=== PATIENT | female | born 1965 | race Caucasian/White ===

== ENCOUNTER → 2017-02-12 | Outpatient (CLI) | payer BC ==
[~2017-02-12] MED LIST: CALC1CAP24 PO; CHLO4TAB20 PO; IBUP-103 PO; NAPR1TAB9 PO; OXYC-57 PO
== END | disposition home or self-care (01) ==
LOC: C.PAPS 11:26
PROVIDERS: ATTEND Obstetrics & Gynecology
DX: Z01.419 Encounter for gynecological examination (general) (routine) without abnormal findings (principal)

== ENCOUNTER 2017-05-20 06:56 | Day surgery (SDC) | payer BC ==
[2017-04-15 09:15] VITALS: BMI 28.0
[~2017-05-20] VITALS: Ht 149.9 cm; Wt 63.0 kg
[2017-05-20] VITALS (8 sets, daily range): BP systolic 83–132; BP diastolic 49–74; PULSE 66–83; TEMP 36.8–37; O2SAT 96–100; Ht 149.9 cm; Wt 63.0 kg
[~2017-05-20 06:56] MED LIST changes: -NAPR1TAB9 PO; -OXYC-57 PO
[2017-05-20] MEDS ORDERED: PROPOFOL IV EMULSION 10 MG/ML 20 ML VIAL IV ONE (07:00)
[2017-05-20] MEDS ORDERED: ROCURONIUM BROMIDE 10 MG/ML 5 ML VIAL IV ONE (07:00)
[2017-05-20] MEDS ORDERED: LIDOCAINE HCL 2% 2 ML VIAL (20MG/ML) ONE (07:00)
[2017-05-20] MEDS ORDERED: MIDAZOLAM HCL 1 MG/ML 2ML VIAL ONE (07:00)
[2017-05-20] MEDS ORDERED: FENTANYL CITRATE INJ 50 MCG/1 ML 2 ML VIAL ONE ×2 (07:00→09:21)
[2017-05-20] MEDS: LACTATED RINGER'S 1000ML 1,000 ML IV SCH ×4 (07:24→07:29)
[2017-05-20] MEDS ORDERED: ATROPINE SULFATE 0.1 MG/ML 5ML SYR IV PRN (07:30)
[2017-05-20] MEDS ORDERED: HYDROmorphone INJ 1 MG/ML SYR IV PRN (07:30)
[2017-05-20] MEDS ORDERED: EpHEDrine SULFATE INJ 50 MG/ML AMP IV PRN (07:30)
[2017-05-20] MEDS ORDERED: FENTANYL CITRATE INJ 50 MCG/1 ML 2 ML VIAL IV PRN (07:30)
[2017-05-20] MEDS ORDERED: ONDANSETRON INJ 2 MG/ML 2 ML VIAL IV PRN (07:30)
[2017-05-20] MEDS ORDERED: NAPR1TAB9 PO (07:36)
[2017-05-20 07:56] LABS: BASO % 0.3 %; BASO ABS # 0.02 K/uL (0-0.2); EOS % 1.1 %; HEMATOCRIT 37.4 % (37-47); IG% 0.2 %; LYMPH % 29.9 %; LYMPH ABS # 1.91 K/uL (1.2-3.4); MEAN CORPUSCULAR HEMOGLOBIN 30.4 pg (25-34); MEAN PLATELET VOLUME 9.7 fL (7.4-10.4); NEUT % 62.5 %; PLATELET COUNT 288 K/uL (130-400); RED BLOOD COUNT 3.98 M/uL (4.2-5.4); WHITE BLOOD COUNT 6.38 K/uL (4.8-10.8)
[2017-05-20 08:01] LABS: COMPLETE YES; MEAN CORPUSCULAR HGB CONC 32.4 g/dl (32-36)
[2017-05-20] MEDS ORDERED: BUPIVACAINE 0.5 % 5 MG/1 ML MPF 30ML VIAL ONE (08:17)
--- NOTE | 2017-05-20 08:25 | History & Physical Bridge Note ---
H&P Re-Evaluation Bridge Note: I have examined the patient, reviewed the History & Physical and in the interval since the performance of the History & Physical I have noted the following changes of clinical significance: No changes noted
[2017-05-20] MEDS ORDERED: ONDANSETRON INJ 2 MG/ML 2 ML VIAL ONE (09:14)
[2017-05-20] MEDS ORDERED: DEXAMETHASONE SOD INJ 4 MG/ML VIAL ONE (09:14)
[2017-05-20] MEDS ORDERED: GLYCOPYRROLATE INJ 0.2 MG/ML VIAL ONE (09:28)
[2017-05-20] MEDS ORDERED: NEOSTIGMINE METHYLSULFATE 5 MG/5 ML SYR ONE (09:28)
[2017-05-20] MEDS ORDERED: SILVER NITR/POTASSIUM NITRATE 10 APPLICATOR PACK ONE (10:03)
[2017-05-20] MEDS ORDERED: LACTATED RINGER'S 1000ML 1,000 ML IV SCH (10:13)
[2017-05-20] MEDS ORDERED: OXYCODONE/ACETAMINOPHEN 5-325 TAB PO PRN ×2 (10:15)
[2017-05-20] MEDS ORDERED: ACETAMINOPHEN 650 MG SUPP PR PRN (10:15)
[2017-05-20] MEDS ORDERED: IBUPROFEN 600 MG TAB PO PRN (10:15)
[2017-05-20] MEDS ORDERED: IBUPROFEN 200 MG TAB PO PRN (10:15)
[2017-05-20] MEDS ORDERED: OXYC-57 PO (10:15)
[2017-05-20] MEDS ORDERED: MoRPHine SULFATE 2 MG/ML CARP IV PRN ×2 (10:15)
[2017-05-20] MEDS ORDERED: ACETAMINOPHEN 325 MG TAB PO PRN (10:15)
[2017-05-20] MEDS ORDERED: KETOROLAC TROMETHAMINE 30 MG/ML VIAL IV. PRN ×2 (10:15)
[2017-05-20] MEDS ORDERED: MoRPHine SULFATE 4 MG/ML 1 ML CARP\\VIAL IV PRN (10:15)
--- NOTE | 2017-05-20 10:16 | Discharge Instructions ---
Discharge Instructions Date of Service May 20, 2017. Visit Reason for Visit: Complex Left Ovarian Cyst Discharge Discharge Diagnosis / Problem: s/p laproscopic removal of left tube and ovary. Discharge Goals Goal(s): Specific goals Activity Recommendations Activity Limitations: per Instructions/Follow-up section Anesthesia . Post Anesthesia Instructions: If you have had General Anesthesia or IV Sedation: * Do not drive today. * Resume driving when surgeon permits. * Do not make important decisions or sign legal documents today. * Call surgeon for: 1. Temperature elevations greater than 101 degrees F. 2. Uncontrollable pain. 3. Excessive bleeding. 4. Persistent nausea and vomiting. 5. Medication intolerance (nausea, vomiting or rash). * For nausea and vomiting use only clear liquids such as: tea, soda, bouillon until nausea subsides, then gradually increase diet as tolerated. * If you have any concerns or questions, call your surgeon's office. If physician is unavailable and it is an emergency, call 911 or go to the nearest emergency room. . Instructions / Follow-Up Instructions / Follow-Up ACTIVITY RECOMMENDATIONS: * Rest the first 2-3 days. You should be back to your normal activity levels by day 3. * No heavy lifting for 2 weeks. * No intercourse, tampons or douching for 1-2 weeks. * You may shower the next day. * Do not drive anytime that you are taking narcotic pain medicines. RETURN TO SCHOOL/WORK: * May return to school or work after 2-3 days. DIET: Nausea may occur in the immediate post-operative period. If so, take clear liquids such as tea, bouillon, apple juice until all nausea has subsided, then resume usual diet. MEDICATIONS: Resume previous medications unless instructed otherwise by your surgeon. Ibuprofen 200mg 2-3 tablets every 4-6 hours as needed -- OR -- Aleve 2 tablets every 8-12 hours as needed for post-operative discomfort Medications are over the counter. Tylenol may be used if above medications are contraindicated or not preferred. Medication should be taken with food or milk. Do not take on an empty stomach. SPECIAL CARE INSTRUCTIONS: * Check temperature twice daily for one week. report any elevation over 101 degrees. * You may experience some vagina spotting and/or bleeding. This is normal for 1 -2 weeks and should not be heavier than a normal period. If it is unusual in amount, call your physician. * Post-operative discomfort may consist of a sore throat, a "bloated" feeling and pain in the shoulders. these are normal symptoms, which usually only last for 2-3 days. * Remove band-aids tomorrow and shower. There is no need to replace band-aids unless there is drainage or discomfort. FOLLOW UP VISIT: Call your doctor's office for a post-operative 2 week visit if not already scheduled. Diet Recommendations Recommended Home Diet: no limitations, resume previous diet Procedures Procedures Performed: Left Laparoscopic Salpingo-Oopherectomy Robot Assist Pending Studies Studies pending at discharge: no Medical Emergencies . Who to Call and When: Medical Emergencies: If at any time you feel your situation is an emergency, please call 911 immediately. . Non-Emergent Contact Non-Emergency issues call your: Artillery Or [employer] Gunfire Observer . . "Provider Documentation" section prepared by MaryK ay Fitzgerald. . [place] Drug Monitoring Program Search Results: patient reviewed within database, no issues identified
--- NOTE | 2017-05-20 10:18 | [facility] Post Operative Brief Note ---
Immediate Operative Summary Operative Date May 20, 2017. Pre-Operative Diagnosis Complex ovarian cyst Post-Operative Diagnosis Same as preop Procedure(s) Performed Left Laparoscopic Salpingo-Oopherectomy Robot Assist Surgeon Dr. Fitzgerald Creative Specialist Surgeon(s) Dr. Beckford Estimated Blood Loss 0 ml Findings slightly enlarged left ovary. nl tubes, nl appearing right ovary. adhesions of the bladder to the anterior abdominal wall. a couple of small omental adhesions. Fluids (cc crystalloids) 700cc Specimens A. Left fallopian tube and ovary Drains none Anesthesia gett Complication(s) None Disposition Recovery Room / PACU
--- NOTE | 2017-05-20 11:08 | Anesthesiology Progress Note ---
Anesthesia Post Op Note Date & Time May 20, 2017 at 11:08 Vital Signs Pain Intensity: 3 Vital Signs Past 12 Hours Date Time Temp Pulse Resp B/P (MAP) Pulse Ox O2 Delivery O2 Flow Rate FiO2 05/20/17 10:50 36.0 75 12 120/74 97 Room Air 05/20/17 10:40 72 14 128/70 98 Room Air 05/20/17 10:30 74 19 120/74 100 Oxymask 10 05/20/17 10:20 82 15 119/69 100 Oxymask 10 05/20/17 10:14 36.2 95 16 131/77 100 Oxymask 10 05/20/17 07:20 37 83 18 132/74 (93) 99 Room Air Notes Mental Status: alert / awake / arousable, participated in evaluation Pt Amnestic to Procedure: Yes Nausea / Vomiting: adequately controlled Pain: adequately controlled Airway Patency, RR, SpO2: stable & adequate BP & HR: stable & adequate Hydration State: stable & adequate Anesthetic Complications: no major complications apparent
--- NOTE | 2017-05-20 13:01 | OPERATIVE REPORT ---
DATE OF OPERATION: 05/20/2017 PREOPERATIVE DIAGNOSIS: Complex left ovarian cyst. POSTOPERATIVE DIAGNOSIS: Same. PROCEDURE: Laparoscopic left salpingo-oophorectomy. SURGEON: Dr. Mary Kay Fitzgerald. RESEARCH LEADER: Dr. Erik Beckford. ANESTHESIA: General per endotracheal tube. ESTIMATED BLOOD LOSS: Minimal. FLUIDS: 700 mL of IV fluid. URINE OUTPUT: Approximately 100 mL of clear yellow urine drained from the Florian catheter at the end of the procedure. INDICATIONS: Katelyn is a 51-year-old white female who has an intrauterine device. The strings were not visible, so she had an ultrasound showing an asymptomatic complex left ovarian cyst, approximately 3 cm. It has been persistent since December, has a blood flow and a nodule. Decision was made for removal. FINDINGS: Left tube and right tube were normal. Right ovary free and normal. Uterus is normal except some adhesions of the bladder to the anterior abdominal wall. There were a few omental adhesions. The left ovary was free from the left pelvic sidewall. It was slightly enlarged. There was no obvious cystic mass on the ovary noted. COMPLICATIONS: None. DRAINS: Florian. DISPOSITION: To recovery room in stable condition. DESCRIPTION OF PROCEDURE: The patient was taken the operating room, where she was identified verbally and by bracelet. She was placed in dorsal spine position, where general anesthesia was induced without difficulty. She was then placed in the [facility] Her arms were carefully tucked and draped at her side. Her chest was protected and restrained. The head athletic trainer was placed and the patient was prepped and draped in normal sterile fashion. Timeout was held identifying correct patient, procedure and positioning. Exam under anesthesia was performed. The uterus was midline and mobile. There were no appreciable adnexal masses. The Florian catheter was placed into the bladder. A weighted speculum was placed in the posterior vagina. The anterior lip of the cervix was grasped with a single tooth tenaculum. No IUD strings were visualized. A [employer] uterine manipulator was placed into the cervix and gloves were then changed. Attention was then turned to the abdomen, where an infraumbilical incision was made with a knife. The Veress needle was placed through this at a opening pressure of 5 mmHg. Abdomen insufflated with 2 liters of carbon dioxide gas and a 10-mm optical trocar was placed through this with direct intra-abdominal placement noted. Two da Cristi trocars were placed, 8-mm trocars were placed in the right and left lower quadrants under direct visualization. Evaluation of the pelvis was noted below. The da Cristi rn surgical pcu device was moved to the patient and hooked to the trocars and the conditioning machine operator proceeded to the console. Using [place] bipolar forceps and hot niki, first the infundibulopelvic ligament on the left was identified and was found to be free from the peristalsing ureter. The IP was taken down with cautery and scissors then across the mesosalpinx and the mesovarium and then the specimen was removed from the uterus, taking down the tubo-ovarian ligament and the tubal segment. Hemostasis was attended to with cautery. Attention was returned to the patient, where the da Cristi rn surgical pcu device was removed. A 5-mm trocar was placed in the right lower quadrant site and a 10-mm EndoCatch bag was placed through the 10-mm site and the ovarian specimen was then placed through the bag and the bag was removed through the infraumbilical 10-mm trocar site. All edges were examined and found to be hemostatic. The gas was released from the abdomen. The trocars were removed. A deep stitch of 0 Vicryl was placed at the umbilical site. All incisions were then closed with 4-0 Vicryl in a subcuticular fashion. All incisions were infiltrated with 0.5% Marcaine and treated with Dermabond. The instruments were removed from the vagina. Some bleeding at tenaculum site was attended to with Bovie electrocautery. The procedure was thus terminated. All sponge, lap and needle counts were correct x2. The patient tolerated the procedure well and was taken to recovery room in stable condition. I attest to the content of the Intraoperative Record and any orders documented therein. Any exception s are noted below.
== END 2017-05-20 14:39 | disposition home or self-care (01) ==
LOC: C.ACU 06:56
PROVIDERS: ATTEND Obstetrics & Gynecology
DX: N83.202 Unspecified ovarian cyst, left side (principal); Z97.5 Presence of (intrauterine) contraceptive device; Z83.71 Family history of colonic polyps; Z80.42 Family history of malignant neoplasm of prostate; Z80.49 Family history of malignant neoplasm of other genital organs